=== PATIENT | male | born 1950 | race Caucasian/White ===

== ENCOUNTER 2020-05-02 10:31 | Day surgery (SDC) | payer MEDICARE, MEDICAID ==
[~2020-05-02] VITALS: Ht 172.7 cm; Wt 103.5 kg
[2020-05-02] VITALS (11 sets, daily range): BP systolic 106–164; BP diastolic 60–90
[2020-05-02] MEDS ORDERED: diphenhydrAMINE 25mg capsule PO PRN (10:50)
[2020-05-02] MEDS ORDERED: LORazepam 0.5 MG tablet PO PRN (10:50)
[2020-05-02] MEDS ORDERED: dextrose 50%-water 50ml dispensing syringe IV PRN ×2 (10:50)
[2020-05-02] MEDS ORDERED: normal saline 1,000 ML IV SCH (10:50)
[2020-05-02] MEDS ORDERED: glucagon, human recombinant 1mg kit SUBCUT PRN (10:50)
[2020-05-02] MEDS ORDERED: dextrose ORAL solution 15 GM/59 ML bottle PO PRN ×2 (10:50)
[2020-05-02] MEDS ORDERED: insulin Lispro (HumaLOG) vial - multi-dose SQ SCH (10:50)
[2020-05-02] MEDS ORDERED: nitroGLYCERIN 0.4mg SUBLingual tab SL PRN (10:50)
[2020-05-02] MEDS ORDERED: MESSAGE TO PHARMACY PO ONE (10:50)
[2020-05-02] MEDS ORDERED: ASCO1CAP4 (11:18)
[2020-05-02] MEDS ORDERED: DOXA4TAB3 PO (11:18)
[2020-05-02] MEDS ORDERED: MELO-102 PO (11:18)
[2020-05-02] MEDS ORDERED: TADA10TA14 PO (11:18)
[2020-05-02] MEDS ORDERED: BENA20TA82 PO (11:18)
[2020-05-02] MEDS ORDERED: CALC500T11 PO (11:18)
[2020-05-02] MEDS ORDERED: MAGN400C PO (11:18)
[2020-05-02] MEDS ORDERED: d3 PO (11:18)
[2020-05-02] MEDS ORDERED: GLYB2.5T4 PO (11:18)
[2020-05-02] MEDS ORDERED: ASPI-1264 PO (11:18)
[2020-05-02] MEDS ORDERED: [UNRECOGNIZED DRUG - CODE] (11:18)
[2020-05-02] MEDS ORDERED: midazolam 2 mg/2 ml injection ONE ×3 (12:00→13:21)
[2020-05-02] MEDS ORDERED: fentaNYL/PF 50MCG/1 ML 2ML syringe ONE ×2 (12:00→13:13)
[2020-05-02] MEDS ORDERED: LIDOcaine 1% (10mg/ml)w/preservative injection 20ml MDV ONE (12:01)
[2020-05-02] MEDS ORDERED: iohexol 350 MG/ML 50ML vial IV ONE (12:01)
[2020-05-02] MEDS ORDERED: iohexol 350MG/ML 100ml bottle IV ONE (12:01)
[2020-05-02] MEDS ORDERED: metoprolol tartrate 1mg/ml inj IV ONE (13:40)
[2020-05-02] MEDS ORDERED: HYDROcodone/acetaminophen 5mg/325mg tablet PO PRN (14:30)
[2020-05-02] MEDS ORDERED: proCHLORperazine 10 MG/2 ml inj IV PRN (14:30)
[2020-05-02] MEDS ORDERED: ondansetron/PF 4mg/2ml inj IV PRN (14:30)
[2020-05-02] MEDS ORDERED: HYDROcodone/acetaminophen 10/325mg tab PO PRN (14:30)
[2020-05-02] MEDS ORDERED: OXAZEpam 15mg capsule PO PRN (14:30)
--- NOTE | 2020-05-02 17:13 | NUR ---
refused 1700 accucheck, only checks himself at home once a day.
[2020-05-02] MEDS ORDERED: insulin glargine (Lantus) pen - multi-dose SQ SCH (21:00)
== END 2020-05-02 20:00 | disposition home or self-care (01) ==
LOC: SSTAY O 10:31
PROVIDERS: ATTEND Internal Medicine Cardiovascular Disease
DX: R94.39 Abnormal result of other cardiovascular function study (principal); I25.10 Atherosclerotic heart disease of native coronary artery without angina pectoris; G47.33 Obstructive sleep apnea (adult) (pediatric); I10 Essential (primary) hypertension; E78.5 Hyperlipidemia, unspecified; E11.9 Type 2 diabetes mellitus without complications; M54.32 Sciatica, left side; Z96.653 Presence of artificial knee joint, bilateral; Z87.891 Personal history of nicotine dependence; Z79.899 Other long term (current) drug therapy
CPT/HCPCS: 82948; 93005; 93458; 99152; 99153; C1760; C1769; J1644; J2001; J2250; J3010; J7030; Q0163; Q9967; A4620; A6258; J3490